=== PATIENT | female | born 1960 | race Caucasian/White ===

== ENCOUNTER 2021-08-10 22:30 | Emergency (ER) | payer OTHER ==
[~2021-08-10] VITALS: Ht 167.6 cm; Wt 117.9 kg
[2021-08-10] MEDS ORDERED: COZAAR 25 MG TA25 M1 (22:49)
[2021-08-10] MEDS ORDERED: TOUJEO SOL300 UNIT/1 SUBQ (22:51)
[2021-08-10] MEDS ORDERED: ASA81BEC PO (22:51)
[2021-08-10] MEDS ORDERED: KLOR-CON M2020 MEQ (22:52)
[2021-08-10] MEDS ORDERED: SPIRONOLACTONE25 MG PO (22:52)
[2021-08-10] MEDS ORDERED: XANAX2 MG PO (22:55)
[2021-08-10] MEDS ORDERED: LYRICA25 MG PO (22:55)
[2021-08-10 23:07] LABS: MCV 86.1 fL (80.0-100.0); MPV 7.7 fl. (7.2-11.1)
[2021-08-10 23:09] LABS: ABSOLUTE EOSINOPHILS 0.1 thou/uL (0.0-0.7); ABSOLUTE LYMPHOCYTES 2.6 thou/uL (0.8-5.3); ABSOLUTE MONOCYTES 0.6 thou/uL (0.0-1.2); ABSOLUTE NEUTROPHILS 3.7 thou/uL (1.6-8.1); BASOPHILS 0.6 %; EOSINOPHILS 1.6 %; HEMATOCRIT 40.7 % (37.0-47.0); HEMOGLOBIN 13.6 gm/dL (12.0-15.0); LYMPHOCYTES 36.9 %; MCH 28.8 pg (26.0-34.0); MCHC 33.5 g/dL (28.0-37.0); MONOCYTES 8.8 %; NUCLEATED RBCS 0 /100WBC; PLATELET COUNT* 305 thou/uL (150-400); POLYS 52.1 %; RBC 4.72 mil/uL (4.20-5.00); RDW-CV 15.1 % (10.5-14.5); WBC 7.1 thou/uL (4.0-11.0)
[2021-08-10 23:44] LABS: CALCIUM 9.5 mg/dL (8.5-10.1); POTASSIUM 3.9 mmol/L (3.5-5.1)
[2021-08-10 23:45] LABS: URINE BILIRUBIN NEGATIVE (Negative); URINE BLOOD NEGATIVE (Negative); URINE CLARITY CLEAR; URINE COLOR YELLOW; URINE GLUCOSE-RANDOM TRACE (Negative); URINE KETONES NEGATIVE (Negative); URINE LEUKOCYTES-REFLEX NEGATIVE (Negative); URINE NITRITE-REFLEX NEGATIVE (Negative); URINE PROTEIN NEGATIVE (Negative); URINE UROBILINOGEN 0.2 E.U./dl (0.2-1.0)
[2021-08-10 23:51] LABS: ALBUMIN 4.2 g/dL (3.4-5.0); TOTAL BILIRUBIN 0.6 mg/dL (<0.1-1.0); TOTAL PROTEIN 7.3 g/dL (6.4-8.2)
[2021-08-10 23:52] VITALS: BP 135/65
[2021-08-11 00:31] LABS: AMP/METHAMP Negative (Negative); BARBITURATES Negative (Negative); BENZODIAZEPINES POSITIVE (Negative); COCAINE Negative (Negative); METHADONE Negative (Negative); OPIATES Negative (Negative); PCP Negative (Negative); THC Negative (Negative)
== END 2021-08-10 23:44 | disposition left against medical advice (07) ==
LOC: M.ERS 22:30
PROVIDERS: Emergency Medicine
DX: R56.9 Unspecified convulsions (principal); T42.8X5A Adverse effect of antiparkinsonism drugs and other central muscle-tone depressants, initial encounter; E11.9 Type 2 diabetes mellitus without complications; K21.9 Gastro-esophageal reflux disease without esophagitis; Z90.710 Acquired absence of both cervix and uterus; Z86.73 Personal history of transient ischemic attack (TIA), and cerebral infarction without residual deficits; Z79.899 Other long term (current) drug therapy; Z79.4 Long term (current) use of insulin; Z79.82 Long term (current) use of aspirin; Z88.8 Allergy status to other drugs, medicaments and biological substances; Y92.89 Other specified places as the place of occurrence of the external cause